=== PATIENT | female | born 1950 ===

== ENCOUNTER 2021-02-27 20:42 | Inpatient (IN) | payer MEDICARE, OTHER ==
[~2021-02-27] VITALS: Ht 152.4 cm; Wt 42.6 kg
[2021-02-27 20:18] VITALS: BP 155/59
[2021-02-27] MEDS ORDERED: Z GUARD REMEDY PASTE 57 GM TUBE TOP PRN (20:45)
--- NOTE | 2021-02-27 22:30 | NUR ---
Admitted pt to rehab with dx of S/P L Hip fracture, S/P L Hip ORIF with c/o pain 10/18. She is alert and oriented, able to make needs known, [place] speaking with little Iraqi. On room air, no respiratory distress noted. With FC patent and draining well with clear yellowish urine. Admission process done, belongings list filled up and full body assessment performed with photos taken and placed in chart. MRSA swab done and sent to lab. All needs attended. Call light placed within reach. Will continue to monitor. Addendum: 02/28/21 at 0054 by KAYE DUBOIS RN Dr Cordoba made aware of admssion and Dr. Enamorado will do med recon. Addendum: 02/28/21 at 0308 by KAYE DUBOIS RN CORRECTION: Dr. Willingham to do med recon
[2021-02-27] MEDS ORDERED: PIOG15TA8 PO (22:39)
[2021-02-27] MEDS ORDERED: ENOX30DI SUBCUT (22:39)
[2021-02-27] MEDS ORDERED: FERR325T28 PO (22:39)
[2021-02-27] MEDS ORDERED: ERGO500040 PO (22:39)
[2021-02-27] MEDS ORDERED: HYDR-3972 PO (22:39)
--- NOTE | 2021-02-27 23:00 | NUR ---
Pt noted with 8/10 pain on L hip and BP 155/59. [place] PRN given and noted to be effective. Latest BP 136/55.
[2021-02-27] MEDS: HYDROCODONE/APAP 5-325MG TABLET PO PRN (23:25)
[2021-02-28 04:21] VITALS: BP 116/54
[2021-02-28 06:41] LABS: HEMATOCRIT 26.1 % (31.2-41.9); MEAN CORPUSCULAR HEMOGLOBIN 32.7 uug (24.7-32.8); MEAN CORPUSCULAR VOLUME 97.5 fL (75.5-95.3); PLATELET COUNT (AUTO) 170 K/uL (179-408)
--- NOTE | 2021-02-28 06:57 | NUR ---
Pt slept throughout the night, easily arousable for care. She is alert and oriented x4, able to make needs known. Incisions on L hip remains dry and intact. On room air with no respiratory distress noted. No complaints of pain and discomfort made at this time. All needs attended. Call light placed within reach. Frequent visual checks done. Will endorse to next shift for assistance.
[2021-02-28 06:59] LABS: ALANINE AMINOTRANSFERASE 11 U/L (14-59); ALKALINE PHOSPHATASE 193 U/L (50-136); ASPARTATE AMINOTRANSFERASE 22 U/L (15-37); BILIRUBIN,TOTAL 0.5 mg/dL (0.2-1.0); CARBON DIOXIDE 25 mmol/L (21-32); CHLORIDE 106 mmol/L (98-107); CREATININE 1.8 mg/dL (0.6-1.3); GLUCOSE 126 mg/dL (74-106); TOTAL PROTEIN, SERUM 6.6 g/dL (6.4-8.2); UREA NITROGEN, BLOOD 25 mg/dL (7-18)
[2021-02-28 08:00] VITALS: BP 121/52
[2021-02-28] MEDS: HYDROCODONE/APAP 5-325MG TABLET PO PRN (09:18)
[2021-02-28] MEDS: PIOGLITAZONE HCL 15 MG TABLET PO SCH (09:19)
[2021-02-28] MEDS: FERROUS SULFATE 325 MG TABEC PO SCH (09:19)
[2021-02-28] MEDS: ENOXAPARIN SODIUM 30 MG/0.3 ML DISP.SYRIN SUBCUT SCH (09:25)
[2021-02-28] MEDS ORDERED: FOLI1TAB94 PO (13:56)
[2021-02-28 16:00] VITALS: BP 132/60
[2021-02-28 20:58] VITALS: BP 122/53
[2021-03-01 04:50] VITALS: BP 132/54
--- NOTE | 2021-03-01 06:24 | NUR ---
Shift End Report: VS stable. Slept well throughout the night. No complaint presented No significant event reported. Continue car3e as planned.
[2021-03-01 07:45] VITALS: BP 120/46
[2021-03-01] MEDS: FERROUS SULFATE 325 MG TABEC PO SCH (08:55)
[2021-03-01] MEDS: PIOGLITAZONE HCL 15 MG TABLET PO SCH (08:55)
[2021-03-01] MEDS: FOLIC ACID 1 MG TABLET PO SCH (08:55)
[2021-03-01] MEDS: HYDROCODONE/APAP 5-325MG TABLET PO PRN (08:58)
[2021-03-01] MEDS: ENOXAPARIN SODIUM 30 MG/0.3 ML DISP.SYRIN SUBCUT SCH (09:00)
--- NOTE | 2021-03-01 12:16 | NUR ---
INTERDISCIPLINARY TEAM CONFERENCE
--- NOTE | 2021-03-01 13:00 | NUR ---
Received an order from Dr. Stewart to remove shepard catheter. Order carried out.
[2021-03-01 15:44] VITALS: BP 109/44
--- NOTE | 2021-03-01 16:06 | NUR ---
Patient voided freely in the toilet with no complain of any discomfort.
[2021-03-01] MEDS: NEPRO (VANILLA) 237 ML CAN PO SCH (17:53)
[2021-03-01 20:00] VITALS: BP 126/50
[2021-03-02 04:00] VITALS: BP 117/57
--- NOTE | 2021-03-02 06:07 | NUR ---
Shift End Report. VS stable. No complaint presented all night. Slept good. Presented no complaint. No significant event reported all night. Continue care as planned.
[2021-03-02 07:02] LABS: IRON, SERUM 40 ug/dL (50-175)
[2021-03-02 07:36] LABS: FERRITIN 1662 ng/mL (8-252)
[2021-03-02 07:48] VITALS: BP 124/50
[2021-03-02] MEDS: NEPRO (VANILLA) 237 ML CAN PO SCH ×2 (09:00→17:08)
[2021-03-02] MEDS: FERROUS SULFATE 325 MG TABEC PO SCH (09:09)
[2021-03-02] MEDS: PIOGLITAZONE HCL 15 MG TABLET PO SCH (09:09)
[2021-03-02] MEDS: FOLIC ACID 1 MG TABLET PO SCH (09:09)
[2021-03-02] MEDS: HYDROCODONE/APAP 5-325MG TABLET PO PRN ×2 (09:10→13:35)
[2021-03-02] MEDS: ENOXAPARIN SODIUM 30 MG/0.3 ML DISP.SYRIN SUBCUT SCH (09:15)
--- NOTE | 2021-03-02 12:23 | NUR ---
INDIVIDUALIZED PLAN OF CARE
[2021-03-02 15:19] VITALS: BP 117/50
[2021-03-02 20:15] VITALS: BP 121/42
--- NOTE | 2021-03-03 07:47 | NUR ---
Pt received resting in bed. She is alert and oriented x4, able to make needs known. Incisions on L hip remains dry and intact. On room air with no respiratory distress noted. Up ambulating with PT using FWW medicated with [place] as order for complaints of pain and discomfort. All needs attended. Call light placed within reach. Frequent visual checks done. Will continue to monitor closely.
[2021-03-03 08:00] VITALS: BP 127/55
[2021-03-03] MEDS: PIOGLITAZONE HCL 15 MG TABLET PO SCH (09:03)
[2021-03-03] MEDS: FERROUS SULFATE 325 MG TABEC PO SCH (09:03)
[2021-03-03] MEDS: FOLIC ACID 1 MG TABLET PO SCH (09:03)
[2021-03-03] MEDS: ENOXAPARIN SODIUM 30 MG/0.3 ML DISP.SYRIN SUBCUT SCH (09:05)
[2021-03-03] MEDS: NEPRO (VANILLA) 237 ML CAN PO SCH ×2 (09:06→17:41)
[2021-03-03] MEDS: HYDROCODONE/APAP 5-325MG TABLET PO PRN ×2 (10:38→17:00)
[2021-03-03 15:34] VITALS: BP 108/51
[2021-03-03 20:48] VITALS: BP 111/45
[2021-03-04] MEDS: HYDROCODONE/APAP 5-325MG TABLET PO PRN ×4 (00:31→20:38)
[2021-03-04 04:43] VITALS: BP 111/50
[2021-03-04 07:49] LABS: MEAN CORPUSCULAR HEMOGLOBIN 33.5 uug (24.7-32.8); MEAN CORPUSCULAR VOLUME 98.5 fL (75.5-95.3); PLATELET COUNT (AUTO) 226 K/uL (179-408)
[2021-03-04 08:03] LABS: CARBON DIOXIDE 24 mmol/L (21-32); CHLORIDE 106 mmol/L (98-107); GLUCOSE 119 mg/dL (74-106); MAGNESIUM 2.2 mg/dL (1.8-2.4); PHOSPHOROUS 3.6 mg/dL (2.5-4.9); POTASSIUM 3.8 mmol/L (3.5-5.1); UREA NITROGEN, BLOOD 33 mg/dL (7-18)
[2021-03-04 08:30] VITALS: BP 117/42
[2021-03-04] MEDS: FERROUS SULFATE 325 MG TABEC PO SCH (08:54)
[2021-03-04] MEDS: NEPRO (VANILLA) 237 ML CAN PO SCH ×3 (08:54→17:00)
[2021-03-04] MEDS: PIOGLITAZONE HCL 15 MG TABLET PO SCH (08:54)
[2021-03-04] MEDS: FOLIC ACID 1 MG TABLET PO SCH (08:54)
[2021-03-04] MEDS: ENOXAPARIN SODIUM 30 MG/0.3 ML DISP.SYRIN SUBCUT SCH (09:07)
[2021-03-04 16:00] VITALS: BP 130/46
--- NOTE | 2021-03-04 18:06 | NUR ---
patient noted with not eating well, did not want to open his mouth, did not eat breakfast and lunch, however when son was here in the evening dinner time, son fed the patient and patient was compliant and ate most of his food, per patient son, patient was more active yesterday and day before yesterday, AISHA hays made aware, with orders, noted. Addendum: 03/04/21 at 1847 by BALAJI MEJIA RN, RN disregard above documentation, wrong documentation
--- NOTE | 2021-03-04 19:26 | NUR ---
incision site is clean and dry
[2021-03-04 20:49] VITALS: BP 100/35
[2021-03-05 04:04] VITALS: BP 118/44
[2021-03-05] MEDS: HYDROCODONE/APAP 5-325MG TABLET PO PRN ×2 (06:18→19:59)
[2021-03-05 08:00] VITALS: BP 104/42
[2021-03-05] MEDS: NEPRO (VANILLA) 237 ML CAN PO SCH ×5 (09:00→17:00)
[2021-03-05] MEDS: PIOGLITAZONE HCL 15 MG TABLET PO SCH (09:10)
[2021-03-05] MEDS: FOLIC ACID 1 MG TABLET PO SCH (09:10)
[2021-03-05] MEDS: ERGOCALCIFEROL 50,000 UNIT CAPSULE PO SCH (09:10)
[2021-03-05] MEDS: FERROUS SULFATE 325 MG TABEC PO SCH (09:10)
[2021-03-05] MEDS: ENOXAPARIN SODIUM 30 MG/0.3 ML DISP.SYRIN SUBCUT SCH (09:15)
[2021-03-05 16:00] VITALS: BP 121/51
[2021-03-05 20:28] VITALS: BP 107/53
[2021-03-06 04:52] VITALS: BP 120/54
[2021-03-06 08:00] VITALS: BP 120/40
[2021-03-06] MEDS: FERROUS SULFATE 325 MG TABEC PO SCH (08:49)
[2021-03-06] MEDS: FOLIC ACID 1 MG TABLET PO SCH (08:49)
[2021-03-06] MEDS: PIOGLITAZONE HCL 15 MG TABLET PO SCH (08:49)
[2021-03-06] MEDS: HYDROCODONE/APAP 5-325MG TABLET PO PRN (08:53)
[2021-03-06] MEDS: NEPRO (VANILLA) 237 ML CAN PO SCH ×5 (09:00→17:00)
[2021-03-06] MEDS: ENOXAPARIN SODIUM 30 MG/0.3 ML DISP.SYRIN SUBCUT SCH (10:27)
[2021-03-06 16:30] VITALS: BP 106/48
[2021-03-06 19:29] LABS: *BILIRUBIN,URIN NEGATIVE (NEGATIVE); *BLOOD, URINE 1+ (NEGATIVE); *CLARITY,URINE CLOUDY (CLEAR); *COLOR,URINE LIGHT YELLOW (YELLOW); *KETONES,URINE NEGATIVE (NEGATIVE); *UROBILINOGEN,URINE 0.2 E.U./dl (NORMAL); LEUKOCYTE ESTERASE ,URINE 3+ (NEGATIVE); NITRITE, URINE POSITIVE (NEGATIVE); UGLUCOSE TRACE (NEGATIVE)
[2021-03-06 19:38] LABS: *CREATININE,URINE 29.3 mg/dL (30-125); *URINE TOTAL PROTEIN RANDOM 43.8 mg/dL (<150/24HR)
[2021-03-06 20:18] VITALS: BP 106/46
[2021-03-06 22:39] LABS: BACTERIA,URINE MODERATE /HPF (NONE SEEN); SQUAMOUS EPITHELIAL CELL,UR MODERATE /HPF (NONE SEEN); WBC,URINE TNTC /HPF (0-3)
[2021-03-07 04:21] VITALS: BP 117/49
[2021-03-07 07:07] LABS: HEMATOCRIT 29.9 % (31.2-41.9); MEAN CORPUSCULAR HEMOGLOBIN 33.4 uug (24.7-32.8); MEAN CORPUSCULAR VOLUME 99.5 fL (75.5-95.3); PLATELET COUNT (AUTO) 257 K/uL (179-408)
[2021-03-07 07:20] LABS: ALANINE AMINOTRANSFERASE 16 U/L (14-59); ALKALINE PHOSPHATASE 192 U/L (50-136); ASPARTATE AMINOTRANSFERASE 27 U/L (15-37); BILIRUBIN,TOTAL 0.5 mg/dL (0.2-1.0); CARBON DIOXIDE 20 mmol/L (21-32); CHLORIDE 105 mmol/L (98-107); CREATININE 1.8 mg/dL (0.6-1.3); GLUCOSE 145 mg/dL (74-106); PHOSPHOROUS 3.5 mg/dL (2.5-4.9); UREA NITROGEN, BLOOD 30 mg/dL (7-18)
[2021-03-07 08:05] VITALS: BP 119/45
[2021-03-07] MEDS: FERROUS SULFATE 325 MG TABEC PO SCH (08:56)
[2021-03-07] MEDS: FOLIC ACID 1 MG TABLET PO SCH (08:56)
[2021-03-07] MEDS: PIOGLITAZONE HCL 15 MG TABLET PO SCH (08:56)
[2021-03-07] MEDS: HYDROCODONE/APAP 5-325MG TABLET PO PRN ×2 (08:59→22:21)
[2021-03-07] MEDS: NEPRO (VANILLA) 237 ML CAN PO SCH ×5 (09:00→17:00)
[2021-03-07] MEDS: ENOXAPARIN SODIUM 30 MG/0.3 ML DISP.SYRIN SUBCUT SCH (11:08)
--- NOTE | 2021-03-07 14:20 | NUR ---
Patient seen by Dr. Black, informed MD regarding abnormal lab and urinalysis results with no new order.
[2021-03-07 16:42] VITALS: BP 127/60
[2021-03-07 20:36] VITALS: BP 113/46
[2021-03-08 04:42] VITALS: BP 125/42
--- NOTE | 2021-03-08 06:10 | NUR ---
Received to care, lying in bed, pleasant upon approach. Assisted to the bathroom as needed. PRN [place] was given last night, for left hip pain at 2220, with good results. She slept soundly throughout the night. No distress noted. C/L in reach.
[2021-03-08 08:00] VITALS: BP 131/48
[2021-03-08] MEDS: FOLIC ACID 1 MG TABLET PO SCH (08:48)
[2021-03-08] MEDS: PIOGLITAZONE HCL 15 MG TABLET PO SCH (08:48)
[2021-03-08] MEDS: FERROUS SULFATE 325 MG TABEC PO SCH (08:48)
[2021-03-08] MEDS: ENOXAPARIN SODIUM 30 MG/0.3 ML DISP.SYRIN SUBCUT SCH (08:50)
[2021-03-08] MEDS: HYDROCODONE/APAP 5-325MG TABLET PO PRN (08:51)
[2021-03-08] MEDS: NEPRO (VANILLA) 237 ML CAN PO SCH ×5 (09:00→17:25)
--- NOTE | 2021-03-08 09:00 | NUR ---
Received AAOX4 able to le5t her needs known, lying in bed, pleasant . Assisted to the bathroom as needed use walker to ambulate. PRN Jayashree as need it for pain, at left hip . No distress noted. needs attended.
--- NOTE | 2021-03-08 14:45 | NUR ---
Seen and examine by DR Matute with new order for X Ray of L hip on 03/10/21 order noted and carry out
[2021-03-08 20:00] VITALS: BP 119/56
[2021-03-09] MEDS: HYDROCODONE/APAP 5-325MG TABLET PO PRN (00:02)
[2021-03-09 06:55] VITALS: BP 123/44
[2021-03-09 06:56] LABS: HEMATOCRIT 28.6 % (31.2-41.9); MEAN CORPUSCULAR HEMOGLOBIN 32.5 uug (24.7-32.8); MEAN CORPUSCULAR VOLUME 99.4 fL (75.5-95.3); PLATELET COUNT (AUTO) 292 K/uL (179-408)
[2021-03-09 07:54] VITALS: BP 139/58
[2021-03-09 07:59] LABS: THYROID STIMULATING HORMONE 1.664 mIU/mL (0.358-3.740)
[2021-03-09 08:00] VITALS: BP 117/47
[2021-03-09 08:16] LABS: ALANINE AMINOTRANSFERASE 20 U/L (14-59); ALKALINE PHOSPHATASE 177 U/L (50-136); ASPARTATE AMINOTRANSFERASE 21 U/L (15-37); BILIRUBIN,TOTAL 0.3 mg/dL (0.2-1.0); CARBON DIOXIDE 25 mmol/L (21-32); CHLORIDE 104 mmol/L (98-107); CHOLESTEROL 252 mg/dL (<200); GLUCOSE 128 mg/dL (74-106); HDL CHOLESTEROL 48 mg/dL (40-60); MAGNESIUM 1.9 mg/dL (1.8-2.4); PHOSPHOROUS 3.7 mg/dL (2.5-4.9); POTASSIUM 3.7 mmol/L (3.5-5.1); TOTAL PROTEIN, SERUM 6.9 g/dL (6.4-8.2); TRIGLYCERIDES 184 MG/DL (30-150); UREA NITROGEN, BLOOD 32 mg/dL (7-18)
[2021-03-09] MEDS: PIOGLITAZONE HCL 15 MG TABLET PO SCH (08:27)
[2021-03-09] MEDS: FERROUS SULFATE 325 MG TABEC PO SCH (08:27)
[2021-03-09] MEDS: FOLIC ACID 1 MG TABLET PO SCH (08:27)
[2021-03-09] MEDS: ENOXAPARIN SODIUM 30 MG/0.3 ML DISP.SYRIN SUBCUT SCH (08:30)
[2021-03-09] MEDS: NEPRO (VANILLA) 237 ML CAN PO SCH ×4 (08:31→16:53)
--- NOTE | 2021-03-09 10:56 | NUR ---
INTERDISCIPLINARY TEAM CONFERENCE THIS WAS HELD AND OBSERVED 03/08/21 AT 13:00
[2021-03-09 16:01] VITALS: BP 123/49
[2021-03-09 20:00] VITALS: BP 117/47
[2021-03-10 06:17] VITALS: BP 119/42
[2021-03-10 08:00] VITALS: BP 110/49
--- NOTE | 2021-03-10 08:00 | NUR ---
awake, alert/oriented, left hip dsg dry and intact, needs attended and met, call light within reach
[2021-03-10] MEDS: FERROUS SULFATE 325 MG TABEC PO SCH (08:27)
[2021-03-10] MEDS: FOLIC ACID 1 MG TABLET PO SCH (08:27)
[2021-03-10] MEDS: HYDROCODONE/APAP 5-325MG TABLET PO PRN (08:28)
[2021-03-10] MEDS: PIOGLITAZONE HCL 15 MG TABLET PO SCH (08:28)
[2021-03-10] MEDS: ENOXAPARIN SODIUM 30 MG/0.3 ML DISP.SYRIN SUBCUT SCH (08:30)
[2021-03-10] MEDS: NEPRO (VANILLA) 237 ML CAN PO SCH ×2 (08:32→13:19)
[2021-03-10] MEDS: SULFAMETH/TRIMETH 800/160 MG TABLET PO SCH ×2 (13:19→20:29)
[2021-03-10] MEDS: GLUCERNA SHAKE VANILLA 237 ML CAN PO SCH ×2 (14:15→20:00)
[2021-03-10 16:00] VITALS: BP 109/39
--- NOTE | 2021-03-10 19:01 | NUR ---
resting in bed, very pleasant and cooperative, all needs attended and met, call light within reach, safety measures maintained
[2021-03-10 20:00] VITALS: BP 105/46
[2021-03-10] MEDS: ATORVASTATIN 20 MG TABLET PO SCH (20:29)
[2021-03-10] MEDS: EZETIMIBE 10 MG TABLET PO SCH (20:29)
[2021-03-11 04:00] VITALS: BP 103/62
--- NOTE | 2021-03-11 06:31 | NUR ---
Pt slept throughout the night, easily arousable for care. She is alert and oriented x4, able to make needs known. On room air with no respiratory distress noted. No complaints of pain and discomfort made at this time. All needs attended. Call light placed within reach. Frequent visual checks done. Will endorse to next shift for assistance.
[2021-03-11] MEDS: FOLIC ACID 1 MG TABLET PO SCH (08:12)
[2021-03-11] MEDS: SULFAMETH/TRIMETH 800/160 MG TABLET PO SCH ×2 (08:12→20:02)
[2021-03-11] MEDS: PIOGLITAZONE HCL 15 MG TABLET PO SCH (08:12)
[2021-03-11] MEDS: FERROUS SULFATE 325 MG TABEC PO SCH (08:12)
[2021-03-11] MEDS: ENOXAPARIN SODIUM 30 MG/0.3 ML DISP.SYRIN SUBCUT SCH (08:16)
[2021-03-11 08:50] VITALS: BP 115/51
[2021-03-11] MEDS: GLUCERNA SHAKE VANILLA 237 ML CAN PO SCH ×3 (10:15→20:02)
[2021-03-11 15:58] VITALS: BP 99/49
[2021-03-11 20:00] VITALS: BP 123/49
[2021-03-11] MEDS: EZETIMIBE 10 MG TABLET PO SCH (20:02)
[2021-03-11] MEDS: ATORVASTATIN 20 MG TABLET PO SCH (20:02)
[2021-03-12 05:20] VITALS: BP 100/50
[2021-03-12 08:00] VITALS: BP 114/44
[2021-03-12] MEDS: PIOGLITAZONE HCL 15 MG TABLET PO SCH (08:16)
[2021-03-12] MEDS: FOLIC ACID 1 MG TABLET PO SCH (08:18)
[2021-03-12] MEDS: ERGOCALCIFEROL 50,000 UNIT CAPSULE PO SCH (08:18)
[2021-03-12] MEDS: HYDROCODONE/APAP 5-325MG TABLET PO PRN (08:19)
[2021-03-12] MEDS: FERROUS SULFATE 325 MG TABEC PO SCH (08:19)
--- NOTE | 2021-03-12 09:00 | NUR ---
Pt received resting in bed. She is alert and oriented x4, able to make needs known. Incisions on L hip remains dry and intact. On room air with no respiratory distress noted. Up ambulating with PT using FWW medicated with [place] as order for complaints of pain and discomfort. All needs attended. Call light placed within reach. Frequent visual checks done. Will continue to monitor closely.
[2021-03-12] MEDS: SULFAMETH/TRIMETH 800/160 MG TABLET PO SCH ×2 (09:15→19:52)
[2021-03-12] MEDS: ENOXAPARIN SODIUM 30 MG/0.3 ML DISP.SYRIN SUBCUT SCH (09:17)
[2021-03-12] MEDS: GLUCERNA SHAKE VANILLA 237 ML CAN PO SCH ×3 (10:50→19:52)
[2021-03-12 16:00] VITALS: BP 118/46
[2021-03-12] MEDS: ATORVASTATIN 20 MG TABLET PO SCH (19:52)
[2021-03-12] MEDS: EZETIMIBE 10 MG TABLET PO SCH (19:52)
[2021-03-12 20:15] VITALS: BP 136/54
[2021-03-13 04:33] VITALS: BP 120/47
[2021-03-13 08:00] VITALS: BP 107/48
--- NOTE | 2021-03-13 08:00 | NUR ---
Received resting in bed easily arousable. No acute distress. Denies pain or sob. Comfortable. Call light in reach. Safety precautions in place. Will cont to monitor.
[2021-03-13] MEDS: FOLIC ACID 1 MG TABLET PO SCH (08:34)
[2021-03-13] MEDS: PIOGLITAZONE HCL 15 MG TABLET PO SCH (08:34)
[2021-03-13] MEDS: SULFAMETH/TRIMETH 800/160 MG TABLET PO SCH ×2 (08:34→20:22)
[2021-03-13] MEDS: FERROUS SULFATE 325 MG TABEC PO SCH (08:34)
[2021-03-13] MEDS: ENOXAPARIN SODIUM 30 MG/0.3 ML DISP.SYRIN SUBCUT SCH (08:35)
[2021-03-13] MEDS: GLUCERNA SHAKE VANILLA 237 ML CAN PO SCH ×4 (10:03→20:30)
--- NOTE | 2021-03-13 18:30 | NUR ---
Pleasant lady compliant with care. Denies sob or pain. Comfortable on room air. Safety measures in place. Kept comfortable. Call light in reach.
[2021-03-13] MEDS: ATORVASTATIN 20 MG TABLET PO SCH (20:22)
[2021-03-13] MEDS: EZETIMIBE 10 MG TABLET PO SCH (20:22)
[2021-03-13 20:27] VITALS: BP 111/45
[2021-03-14] MEDS: HYDROCODONE/APAP 5-325MG TABLET PO PRN ×2 (01:30→14:23)
[2021-03-14 04:27] VITALS: BP 111/46
[2021-03-14 08:00] VITALS: BP 121/52
[2021-03-14] MEDS: FERROUS SULFATE 325 MG TABEC PO SCH (09:17)
[2021-03-14] MEDS: PIOGLITAZONE HCL 15 MG TABLET PO SCH (09:17)
[2021-03-14] MEDS: FOLIC ACID 1 MG TABLET PO SCH (09:17)
[2021-03-14] MEDS: ENOXAPARIN SODIUM 30 MG/0.3 ML DISP.SYRIN SUBCUT SCH (09:18)
[2021-03-14] MEDS: GLUCERNA SHAKE VANILLA 237 ML CAN PO SCH ×2 (09:20→14:00)
--- NOTE | 2021-03-14 11:00 | NUR ---
DISCHARGE PLANNING DR ROMO HERE AWARE THAT PATIENT NEEDS DISCHARGE HOME MEDICATIONS INCLUDING NORCO STATED DID NOT HAVE PRESCRIPTION ON HIM CALLED DR BILL TO PROVIDE PRESCRIPTION STATED THAT HE IS NOT ABLE TO STATED FOR THE HOSPITALIST TO DO IT.
--- NOTE | 2021-03-14 13:15 | NUR ---
DR ROMO HAS BEEN UNABLE TO SEND THE ORDER FOR [place]TE ELECTRONICALLY SO THE [facility] IS HERE ASSISTING HIM.
--- NOTE | 2021-03-14 15:30 | NUR ---
PATIENT DISCHARGED PICKED UP BY HER SON IN SATISFACTORY CONDITION WITH DISCHARGE INSTRUCTIONS AND ALL HER PERSONAL BELONGINGS DR ROMO WAS ABLE TO HAND WRITE A PRESCRIPTION FOR NORCO FOR THE PATIENT PATIENT INSTRUCTED TO FOLLOW UP WITH HER SURGEON ON SATURDAY FOR A FOLLOW UP APPOINTMENT SHE HAS [place] ON THE THREE OP SITES ON HER LEFT HIP WHICH IS CLEAN DRY AND INTACT DRESSING CHANGED.GAVE HER THE HOSPITAL WALKER AND A W/CHAIR PER THE FRAME CATCHER.
[2021-03-15] MEDS ORDERED: FERROUS SULFATE 325 MG TABEC PO SCH (09:00)
== END 2021-03-14 15:30 | disposition home health service (06) | DRG 559 ==
PROVIDERS: ADMIT Physical Medicine & Rehabilitation Pain Medicine; ATTEND Physical Medicine & Rehabilitation Pain Medicine
DX: S72.002D Fracture of unspecified part of neck of left femur, subsequent encounter for closed fracture with routine healing (principal); E43 Unspecified severe protein-calorie malnutrition; N17.0 Acute kidney failure with tubular necrosis; N18.4 Chronic kidney disease, stage 4 (severe); D68.59 Other primary thrombophilia; N39.0 Urinary tract infection, site not specified; D63.8 Anemia in other chronic diseases classified elsewhere; E11.22 Type 2 diabetes mellitus with diabetic chronic kidney disease; E78.5 Hyperlipidemia, unspecified; I12.9 Hypertensive chronic kidney disease with stage 1 through stage 4 chronic kidney disease, or unspecified chronic kidney disease; Z85.43 Personal history of malignant neoplasm of ovary; W19.XXXD Unspecified fall, subsequent encounter; B96.4 Proteus (mirabilis) (morganii) as the cause of diseases classified elsewhere; D50.9 Iron deficiency anemia, unspecified; D53.9 Nutritional anemia, unspecified; R62.7 Adult failure to thrive; W18.30XD Fall on same level, unspecified, subsequent encounter; Z90.49 Acquired absence of other specified parts of digestive tract; Z90.710 Acquired absence of both cervix and uterus; Z90.722 Acquired absence of ovaries, bilateral; Z88.8 Allergy status to other drugs, medicaments and biological substances
CPT/HCPCS: 36415; 73502; 82652; 83550; 83735; 84100; 84156; 84300; 84443; 85025; 87077; 87086; 97161; 97535-GO-CO; J1650